=== PATIENT | male | born 1965 | race Caucasian/White ===

== ENCOUNTER 2017-09-05 19:31 | Emergency (ER) | payer BC, OTHER ==
[2017-09-05 19:50] VITALS: BP 134/76
--- NOTE | 2017-09-05 19:55 | UC ---
Respiratory Complaint HPI - HPI Summary HPI Summary: 52 yo male was in waiting room (brought someone in to be seen) felt nausea then felt like he couldn't get enough air then fingers tingled the felt faint states he has had these spells 1-2 x week for >1 month hx of frequent synopal episodes sees a account support manager had EPS and had an ablation denies cp no SOB at present feels back to his normal self - History of Current Complaint Chief Complaint: UCDizziness Stated Complaint: SHAKEY Time Seen by Provider: 09/05/17 19:46 Hx Obtained From: Patient Onset/Duration: Sudden Onset, Lasting Minutes Timing: Constant Severity Initially: Moderate Severity Currently: None Pain Intensity: 0 Pain Scale Used: 0-10 Numeric Aggravating Factors: Nothing Alleviating Factors: Nothing Associated Signs And Symptoms: Positive: Dyspnea - lasted minutes resolved - Allergies/Home Medications Allergies/Adverse Reactions: Allergies Allergy/AdvReac Type Severity Reaction Status Date / Time Diltiazem [Cardizem] AdvReac Unknown Verified 09/05/17 19:43 Reaction Details Home Medications: Home Medications Cyclobenzaprine TAB* [Flexeril 10 MG TAB*] 10 mg PO TID PRN 09/05/17 [History Confirmed 09/05/17] Ibuprofen TAB* [Motrin TAB* 800 MG] 800 mg PO Q8H PRN 09/05/17 [History Confirmed 09/05/17] traMADol TAB* [Ultram*] 50 mg PO Q6HR PRN 09/05/17 [History Confirmed 09/05/17] PMH/Surg Hx/FS Hx/Imm Hx Previously Healthy: Yes Cardiovascular History: Other Other Cardiovascular History: syncope/ablation Psychological History: Anxiety Cancer History: Other Other Cancer History: multiple myeloma - Surgical History Surgical History: Yes Surgery Procedure, Year, and Place: stem cell transplant multiple myloma, appendectomy,left ankle,cardiac ablation - Family History Known Family History: Positive: Hypertension - Social History Alcohol Use: Occasionally Substance Use Type: None Smoking Status (MU): Heavy Every Day Tobacco Smoker Type: Cigarettes Amount Used/How Often: 1 PPD Length of Time of Smoking/Using Tobacco: Since Age 16 Have You Smoked in the Last Year: Yes Household Exposure Type: Cigarettes - Immunization History Most Recent Influenza Vaccination: May 2014 Most Recent Tetanus Shot: within 10 years Most Recent Pneumonia Vaccination: within 5 years Review of Systems Constitutional: Negative Skin: Negative Eyes: Negative ENT: Negative Respiratory: Negative Cardiovascular: Negative Gastrointestinal: Negative Genitourinary: Negative Motor: Negative Neurovascular: Negative Musculoskeletal: Negative Neurological: Negative Psychological: Negative Is Patient Immunocompromised?: No All Other Systems Reviewed And Are Negative: Yes Physical Exam Triage Information Reviewed: Yes Appearance: Well-Appearing, No Pain Distress, Well-Nourished Vital Signs: Initial Vital Signs Temp 97.3 F 09/05/17 19:44 Pulse 82 09/05/17 19:44 Resp 20 09/05/17 19:44 BP 134/76 09/05/17 19:44 Pulse Ox 90 09/05/17 19:44 Eyes: Positive: Conjunctiva Clear ENT: Positive: Hearing grossly normal, TMs normal. Negative: Nasal congestion, Nasal drainage, Tonsillar swelling, Tonsillar exudate, Trismus, Muffled voice, Hoarse voice, Dental tenderness, Sinus tenderness, Uvula midline Neck: Positive: Supple, Nontender, No Lymphadenopathy Respiratory: Positive: Lungs clear, Normal breath sounds, No respiratory distress, No accessory muscle use Cardiovascular: Positive: RRR, No Murmur Musculoskeletal: Positive: ROM Intact, No Edema Neurological: Positive: Alert Psychological Exam: Normal Skin Exam: Normal UC Diagnostic Evaluation - Laboratory O2 Sat by Pulse Oximetry: 93 - low normal but pt asymtomatic - EKG Cardiac Rate: NL Cardiac Rhythm: Sinus: Normal Ectopy: None ST Segment: Normal Respiratory Course/Dx - Course Course Of Treatment: pt decline transfer to ED. states these are symptoms he frequently has had. states he will see his account support manager first available appt - Differential Dx/Diagnosis Provider Diagnoses: near syncope Discharge - Discharge Plan Condition: Stable Disposition: HOME Patient Education Materials: Near Syncope (ED) Referrals: Fidel Acevedo MD [Primary Care Provider] - Additional Instructions: see your account support manager first available appt to ER for new or worsening symptoms
== END 2017-09-05 20:09 | disposition home or self-care (01) ==
LOC: UCCORT 19:31
DX: R55 Syncope and collapse (principal); Z72.89 Other problems related to lifestyle; Z72.0 Tobacco use; Z82.49 Family history of ischemic heart disease and other diseases of the circulatory system
CPT/HCPCS: 93005; 99211; G0463

== ENCOUNTER 2019-01-30 09:49 | Emergency (ER) | payer BC ==
[2019-01-30 10:02] VITALS: BP 136/87
--- NOTE | 2019-01-30 10:18 | UC ---
Skin Complaint HPI - HPI Summary HPI Summary: 53-year-old male comes in with a chief complaint of infection in the skin of the anterior right knee and also of the right chest wall. Started several days ago. His been using peroxide and drawing salve but the condition is getting worse. Now is spread of redness primarily the knee and is also tender to palpation and his knee hurts when he moves it. No fevers or chills. His son does have a history of MRSA infection. - History of Current Complaint Chief Complaint: UCWounds Time Seen by Provider: 01/30/19 10:04 Stated Complaint: R KNEE PAIN Pain Intensity: 4 - Allergy/Home Medications Allergies/Adverse Reactions: Allergies Allergy/AdvReac Type Severity Reaction Status Date / Time cortisone Allergy palpitations, Verified 01/30/19 09:53 jittery diltiazem [From Cardizem] Allergy shaking, Verified 01/30/19 09:53 palpitations PMH/Surg Hx/FS Hx/Imm Hx Previously Healthy: Yes Respiratory History: Asthma - Surgical History Surgical History: Yes Surgery Procedure, Year, and Place: stem cell transplant multiple myloma,. appendectomy,. left ankle - RECON & BONE SPUR. cardiac ablation. VASECTOMY - Family History Known Family History: Positive: Hypertension, Other - SON HAD MRSA - Social History Alcohol Use: Rare Substance Use Type: Marijuana Substance Use Comment - Amount & Last Used: occasional Smoking Status (MU): Heavy Every Day Tobacco Smoker Type: Cigarettes Amount Used/How Often: 1 PPD Length of Time of Smoking/Using Tobacco: Since Age 16 Have You Smoked in the Last Year: Yes Household Exposure Type: Cigarettes - Immunization History Most Recent Influenza Vaccination: May 2014 Most Recent Tetanus Shot: within 10 years Most Recent Pneumonia Vaccination: within 5 years Review of Systems All Other Systems Reviewed And Are Negative: Yes Constitutional: Positive: Negative Skin: Positive: Other - SEE HPI Eyes: Positive: Blurred Vision ENT: Positive: Negative Respiratory: Positive: Negative Cardiovascular: Positive: Negative Gastrointestinal: Positive: Negative Motor: Positive: Negative Neurovascular: Positive: Negative Musculoskeletal: Positive: Negative Neurological: Positive: Negative Psychological: Positive: Negative Is Patient Immunocompromised?: No Physical Exam Triage Information Reviewed: Yes Appearance: Well-Appearing, No Pain Distress, Well-Nourished Vital Signs: Initial Vital Signs Temp 98.6 F 01/30/19 09:54 Pulse 76 01/30/19 09:54 Resp 18 01/30/19 09:54 BP 136/87 01/30/19 09:54 Pulse Ox 98 01/30/19 09:54 Vital Signs Reviewed: Yes Eye Exam: Normal Eyes: Positive: Conjunctiva Clear Neck: Positive: Supple Respiratory: Positive: No respiratory distress Musculoskeletal: Positive: Other: - RT KNEE PAIN WITH ROM. Neurological: Positive: Alert, Muscle Tone Normal Psychological: Positive: Age Appropriate Behavior Skin: Positive: Other - ERYTHEMA 6CM DIAMETER AND SCATTERED BLISTERS RT ANTERIOR KNEE. I BROKE ONE OF THE BLISTERS AND CULTURED THE SEROUS FLUID. ERYTHEMA IS NOT CIRCUMFERENTIAL, NO KNEE JOINT INVOLEMENT BY EXAM AT THIS TIME. Course/Dx - Course Course Of Treatment: CX PENDING. REEVAL IF NOT IMPROVED OR WORSE. - Diagnoses Provider Diagnosis: Cellulitis of right knee, Cellulitis of chest wall Discharge - Sign-Out/Discharge Documenting (check all that apply): Patient Departure All imaging exams completed and their final reports reviewed: No Studies - Discharge Plan Condition: Stable Disposition: HOME Prescriptions: DOXYcycline CAP(*) [DOXYcycline 100MG CAP(*)] 100 mg PO BID #20 cap Mupirocin 1 applic TOPICAL BID #22 gm Patient Education Materials: Cellulitis (ED) Referrals: Fidel Acevedo MD [Primary Care Provider] - Additional Instructions: FOLLOW UP WITH YOUR DOCTOR IF NOT COMPLETELY IMPROVED. GET RECHECKED SOONER IF YOUR CONDITION WORSENS; FEVER, YOU FEEL ILL, SPREAD OF INFECTION OR ANY QUESTIONS OR CONCERNS. - Billing Disposition and Condition Condition: STABLE Disposition: Home
== END 2019-01-30 10:20 | disposition home or self-care (01) ==
LOC: UCEAST 09:49
DX: L03.115 Cellulitis of right lower limb (principal); L03.313 Cellulitis of chest wall; A49.01 Methicillin susceptible Staphylococcus aureus infection, unspecified site; Z94.84 Stem cells transplant status; Z85.89 Personal history of malignant neoplasm of other organs and systems; F17.210 Nicotine dependence, cigarettes, uncomplicated
CPT/HCPCS: 87070; 87077; 87186; 87205; 87640; 87641; 99212; G0463